=== PATIENT | female | born 1995 | race Native Hawaiian/Other Pacific Islander ===

== ENCOUNTER 2022-04-22 13:28 | Emergency (ER) | payer SELFPAY ==
[~2022-04-22] VITALS: Ht 167.6 cm; Wt 121.8 kg
[2022-04-22 13:49] VITALS: TEMP 98.4
[2022-04-22] MEDS ORDERED: FLEXERIL 1010 MG/TAB PO (14:15)
[2022-04-22 14:45] VITALS: BP 152/86; PULSE 90
== END 2022-04-22 14:45 | disposition home or self-care (01) ==
LOC: COL.ER 13:28
DX: S29.012A Strain of muscle and tendon of back wall of thorax, initial encounter (principal); M62.830 Muscle spasm of back; F17.210 Nicotine dependence, cigarettes, uncomplicated; Z28.310 Unvaccinated for COVID-19; X50.1XXA Overexertion from prolonged static or awkward postures, initial encounter; Y92.59 Other trade areas as the place of occurrence of the external cause; Y99.0 Civilian activity done for income or pay